=== PATIENT | male | born 1950 | race African-American/Black ===

== ENCOUNTER 2017-05-26 15:11 | Observation (INO) ==
[2017-05-26] MEDS ORDERED: ADENOSINE 6 MG/2 ML VIAL IV STA (16:00)
[2017-05-26 16:06] LABS: Basophils % 0.2 % (0.0-0.8); Hematocrit 42.5 VOL% (42.0-52.0); Hemoglobin 13.9 GM/DL (14.0-18.0); Immature Granulocytes % 0.3 %; Immature Granulocytes Absolute 0.02 #; Lymphocytes # 0.8 10*3/uL (1.4-4.0); Lymphocytes % 12.5 % (21.2-54.2); Mean Corpuscular HGB Conc 32.7 GM/DL (32-36); Mean Corpuscular Hemoglobin 32 PG (27-34); Mean Corpuscular Volume 98.2 FL (87-102); Mean Platelet Volume 11.3 FL (9.6-12.0); Monocytes % 15.6 % (1.7-12.7); Neutrophils # 4.8 10*3/uL (1.4-7.4); Neutrophils % 71.4 % (38.7-73.9); Platelet Count 148 T/CUMM (130-400); Red Blood Count 4.33 MC/CUMM (3.8-5.5); Red Cell Distribution Width 11.7 % (9.3-17.3); White Blood Count 6.7 T/CUMM (4-12)
[2017-05-26 16:13] LABS: INR 1.2; PT Patient Result 12.7 SECS
[2017-05-26 16:29] LABS: Apearance,Urine Slightly Hazy (Clear); Bacteria,Urine Occasional /HPF (Few); Bilirubin,Urine Moderate mg/dL (Negative); Blood, Urine Negative (Negative); Glucose,Urine (UA) Negative (Negative); Hyaline Casts,Urine 107 /LPF (0-3); Ketones,Urine 5 mg/dL (Negative); Mucus,Urine Many /LPF (Occasional); Nitrite,Urine Negative (Negative); Protein,Urine 30 MG/DL; RBC,Urine 3 /HPF (0-4); Squamous Epithelial Cell,Urine Occasional /HPF (0-10); Urine Color Amber (Yellow); Urine Specific Gravity 1.031 (1.001-1.035); Urine Urobilinogen < 2.0 EU/DL (0.2-1.0); WBC,Urine 12 /HPF (0-6)
[2017-05-26 16:32] LABS: Albumin 3.9 G/DL (3.4-5.0); Bilirubin,Total 1.6 MG/DL (0.2-1.0); Calcium 8.6 MG/DL (8.5-10.1); Osmolality,Calculated 284.1 MOS/KG (273-304); Potassium 4.3 MMOL/L (3.5-5.1); Thyroid Stimulating Hormone 0.706 uIU/ml (0.358-3.74); Total Protein 7.5 G/DL (6.4-8.3); Troponin I Only 0.455 NG/ML (0.00-0.045)
[2017-05-26] MEDS ORDERED: ADENOSINE 6 MG/2 ML VIAL IV ONE (16:59)
[2017-05-26 17:23] LABS: Barbiturates Screen,Urine Negative (Negative); Benzodiazepines Screen,Urine Negative (Negative); Cannabinoid Screen,Urine Negative (Negative); Opiate Screen,Urine Negative (Negative); Phencyclidine Screen,Urine Negative (Negative)
[2017-05-26] MEDS ORDERED: ACETAMINOPHEN 325 MG TABLET PO PRN (17:32)
[2017-05-26] MEDS ORDERED: ONDANSETRON 4 MG/2 ML VIAL IV PRN (17:32)
[2017-05-26] MEDS: METOPROLOL SUCCINATE XL 25 MG TABLET PO SCH (18:33)
[2017-05-26] MEDS: ENOXAPARIN 40 MG/0.4 ML SYRINGE SUBCUT SCH (20:28)
[2017-05-26] MEDS ORDERED: ASPIRIN CHEW 81 MG TABLET PO ONE (21:30)
[2017-05-27 04:01] LABS: Basophils % 0.3 % (0.0-0.8); Eosinophils % 0.3 % (0.00-10.9); Hematocrit 39.6 VOL% (42.0-52.0); Immature Granulocytes % 0.7 %; Immature Granulocytes Absolute 0.02 #; Lymphocytes # 0.7 10*3/uL (1.4-4.0); Lymphocytes % 21.6 % (21.2-54.2); Mean Corpuscular HGB Conc 32.8 GM/DL (32-36); Mean Corpuscular Hemoglobin 32 PG (27-34); Mean Corpuscular Volume 97.1 FL (87-102); Mean Platelet Volume 11.2 FL (9.6-12.0); Monocytes # 0.5 10*3/uL (0.11-0.8); Monocytes % 17.7 % (1.7-12.7); Neutrophils # 1.8 10*3/uL (1.4-7.4); Neutrophils % 59.4 % (38.7-73.9); Platelet Count 131 T/CUMM (130-400); Red Blood Count 4.08 MC/CUMM (3.8-5.5); Red Cell Distribution Width 11.9 % (9.3-17.3); White Blood Count 3.1 T/CUMM (4-12)
[2017-05-27 04:38] LABS: Calcium 8.2 MG/DL (8.5-10.1); Osmolality,Calculated 287.7 MOS/KG (273-304); Potassium 4.1 MMOL/L (3.5-5.1); Risk Ratio 2.95
[2017-05-27 05:08] LABS: Band Neutrophils 2 % (0-10); Lymphocytes 16 % (20-55); Metamyelocytes 1 %; Myelocytes 1 %; Nucleated Red Blood Cells 1 (0-5); Platelet Estimate Adequate; Segmented Neutrophils 65 % (50-85); Total Cells Counted 100
[2017-05-27] MEDS: METOPROLOL SUCCINATE XL 25 MG TABLET PO SCH (08:26)
[2017-05-27] MEDS: FLUTICASONE 50 MCG NASAL SPRAY 16 GM BOTTLE BOTH NARES SCH (08:26)
[2017-05-27] MEDS: PANTOPRAZOLE 40 MG TABLET PO SCH (08:26)
[2017-05-27] MEDS ORDERED: POTASSIUM CHLORIDE RIDER 10 MEQ in PREMIX 1 EACH IV PRN (12:06)
[2017-05-27] MEDS ORDERED: MAGNESIUM SULF RIDER 2 GM in PREMIX 1 EACH IV PRN (12:06)
[2017-05-27] MEDS ORDERED: ATORVASTATIN 80 MG TABLET PO ONE (12:07)
[2017-05-27] MEDS: ASPIRIN CHEW 81 MG TABLET PO SCH (13:35)
[2017-05-27] MEDS: ENOXAPARIN 40 MG/0.4 ML SYRINGE SUBCUT SCH (20:59)
[2017-05-28] MEDS ORDERED: diphenhydrAMINE CAP 25 MG CAPSULE PO ONE (06:30)
[2017-05-28] MEDS ORDERED: DIAZEPAM 5 MG TABLET PO ONE (06:30)
[2017-05-28] MEDS: METOPROLOL SUCCINATE XL 25 MG TABLET PO SCH (07:06)
[2017-05-28] MEDS: PANTOPRAZOLE 40 MG TABLET PO SCH ×2 (07:06→09:44)
[2017-05-28] MEDS ORDERED: MIDAZOLAM 2 MG/2 ML VIAL ONE (07:07)
[2017-05-28] MEDS ORDERED: HYDROmorphone 2 MG/1 ML VIAL ONE (07:07)
[2017-05-28] MEDS ORDERED: LIDOCAINE 1% 20 ML VIAL ONE (07:08)
[2017-05-28] MEDS ORDERED: VERAPAMIL 5 MG/2 ML VIAL ONE (07:21)
[2017-05-28] MEDS ORDERED: NITROGLYCERIN DRIP 50 MG/250 ML BOTTLE IV ONE (07:21)
[2017-05-28] MEDS ORDERED: ENOXAPARIN 30 MG/0.3 ML SYRINGE ONE (07:32)
[2017-05-28] MEDS: FLUTICASONE 50 MCG NASAL SPRAY 16 GM BOTTLE BOTH NARES SCH (09:56)
[2017-05-28] MEDS: METOPROLOL SUCCINATE XL 50 MG TABLET PO SCH ×2 (09:56)
[2017-05-28] MEDS: ASPIRIN CHEW 81 MG TABLET PO SCH (09:56)
[2017-05-28 13:18] VITALS: BP 117/72
== END 2017-05-28 16:48 | disposition home or self-care (01) ==
LOC: N.ED 15:11 → N.EDINP 15:11 → SUATTDRO 16:58 → N.TELES 17:24
PROVIDERS: ADMIT Internal Medicine Infectious Disease; ATTEND Internal Medicine Geriatric Medicine
PROC: CLCCHCL (ICD-10-PCS; 2017-05-28 07:45)